=== PATIENT | male | born 1970 | race African-American/Black ===

== ENCOUNTER 2018-06-05 16:07 | Emergency (ER) | payer OTHER, SELFPAY ==
--- NOTE | 2018-06-05 19:30 | RAD ---
RIGHT KNEE FOUR VIEWS: 06/05/18 HISTORY: Pain. COMPARISON: Right knee fluoroscopy 04/22/16. FINDINGS: Four views of the right knee demonstrate uncomplicated internal fixation hardware. 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 Mild degenerative change in the medial compartment. No fracture or malalignment. No significant joint fluid. IMPRESSION: Chronic and post instrumentation changes as above. No acute process. POS: [facility]
== END 2018-06-05 18:15 | disposition home or self-care (01) ==
LOC: ERS 16:07
DX: S83.91XA Sprain of unspecified site of right knee, initial encounter (principal); F17.210 Nicotine dependence, cigarettes, uncomplicated; X50.1XXA Overexertion from prolonged static or awkward postures, initial encounter

== ENCOUNTER 2021-03-17 08:56 | Emergency (ER) | payer BC, SELFPAY ==
[2021-03-17] MEDS ORDERED: Boostrix 0.5 ML (Tdap) VIAL ONE (10:37)
[2021-03-17] MEDS ORDERED: Bacitracin 1 PK ONE (11:08)
== END 2021-03-17 11:22 | disposition home or self-care (01) ==
LOC: ERS 08:56
DX: S90.121A Contusion of right lesser toe(s) without damage to nail, initial encounter (principal); I10 Essential (primary) hypertension; F17.210 Nicotine dependence, cigarettes, uncomplicated; W20.8XXA Other cause of strike by thrown, projected or falling object, initial encounter
CPT/HCPCS: 90471; 90715